=== PATIENT | female | born 1950 | race American Indian/Alaskan Native ===

== ENCOUNTER 2022-09-18 06:59 | Day surgery (SDC) | payer MEDICARE, OTHER ==
[~2022-09-18] VITALS: Ht 154.9 cm; Wt 74.2 kg
[~2022-09-18 06:59] MED LIST: B COMPLETE1 EACH PO; CALCITRIOL0.5 MCG PO; CALCIUM500 MG PO; CEFTIN500 MG PO; CETIRIZINE HCL10 MG PO; CLOTRIMAZOLE TOP; COLACE100 MG PO; FISH OIL 1,2001 EAC8 PO; FISH OIL500 MG PO; HYDROCHLOROTH12.5 MG PO; HYDROCODON-ACE1 EA11 PO; LEVOTHYROXINE112 MC1 PO; LEVOTHYROXINE25 MCG PO; NAPROXEN250 MG PO; NORCO 5-325 TA1 EACH PO; POTASSIUM CHLO10 MEQ PO; PRILOSEC20 MG PO; TERBINAFINE HC250 MG PO; UREA198 GM TOP; VITAMIN C500 M1 PO; VITAMIN D5000 UNIT PO; ZOFRAN4 MG PO
--- NOTE | 2022-09-18 09:01 | NUR ---
09/18/22 0901 Rochelle Reyes [id number] PATIENT ARRIVES TO PACU SLEEPING. AWAKENS WITH REPEATED VERBAL STIMULI, THEN BACK TO SLEEP. RESP EVEN AND UNLABORED, NC AT 2 LITERS, DOES NOT REMINDERS TO TAKE DEEP BREATHS. PASSING GAS.
--- NOTE | 2022-09-18 09:50 | OR ---
[facility] [address], [place] [address] Signed DATE OF OPERATION: 09/18/2022 SURGEON: Adriel Baker MD PREOPERATIVE DIAGNOSES: 1. Cecal diverticulum. 2. Personal history of colonic polyps, age 56. 3. Internal and external hemorrhoids. POSTOPERATIVE DIAGNOSES: 1. Minimal sigmoid diverticulosis (x2). 2. Cecal diverticulum x1. 3. Minimal internal and external hemorrhoids. PROCEDURE: Colonoscopy without biopsy. ESTIMATED BLOOD LOSS: None. INDICATIONS: Jeremiah is a 72-year-old female, who came for followup colonoscopy. She 1st came in 2006 at the age of 56. She had a cecal diverticulum and several small polyps in her rectum. We had her come back in three years in 2009 at the age of 59 and again she just had some internal and external hemorrhoids, but no polyps. She came back to us then in 2014 at the age of 64 and had just a hyperplastic polyp in the rectum. Again, just small internal and external hemorrhoids. She always does well with Versed and fentanyl. She has no family history of colon cancer or polyps. However, her developed colon cancer at the age of 59 and he two or three years later from his colon cancer. She is now a and retired. She told me she has no lower GI complaints. In the office, I had given her a pamphlet on colonoscopy. She recalls the test well. There is risk including, but not limited to gas bloating, crampy abdominal pain, bleeding, perforation requiring surgery, and missed diagnosis. We also reviewed the need for the IV conscious sedation. She had expressed understanding and wished to proceed. PROCEDURE NOTE: Jeremiah was taken into our endoscopy suite and placed in the left lateral decubitus position. She was given 5 mg of Versed and 150 mcg of fentanyl. A digital rectal exam was performed. She has very small external hemorrhoids. She had good sphincter tone. There were no masses. The adult colonoscope was introduced and advanced all the way Electronically Signed By: ADRIEL BAKER MD 09/18/22 0950 PATIENT NAME: JEREMIAH SOARES OPERATIVE REPORT DATE OF : 48 REPORT #: [id number] PHYSICIAN: ADRIEL BAKER MD PCP: SAM PORTILLO MD REPORT IS CONFIDENTIAL AND NOT TO BE RELEASED WITHOUT AUTHORIZATION [facility] [address], [place] [address] Signed around into the cecum under direct visualization of the camera. It took some abdominal compression and a little extra sedation in order to advance the scope particularly through the left colon. Her prep was quite excellent. We could easily see the appendiceal orifice and the ileocecal valve. There was one small diverticulum in the cecum. The scope was then slowly withdrawn. We had taken several pictures throughout for photodocumentation. We only saw a couple of diverticula in the sigmoid colon. They are both moderate in size. The rectum was unremarkable. Upon retroflexion of the scope, we could see some minimal internal hemorrhoid columns. After this, the gas was suctioned out and the colonoscope removed. Jeremiah tolerated the procedure quite well. RECOMMENDATIONS: I will see Jeremiah back in 5 years for repeat colonoscopy. Adriel Baker MD ALB/MODL /[id number] cc: [facility] Adriel Baker MD Copies: ADRIEL BAKER MD ~ Electronically Signed By: ADRIEL BAKER MD 09/18/22 0950 PATIENT NAME: JEREMIAH SOARES OPERATIVE REPORT DATE OF : 48 REPORT #: [id number] PHYSICIAN: ADRIEL BAKER MD PCP: SAM PORTILLO MD REPORT IS CONFIDENTIAL AND NOT TO BE RELEASED WITHOUT AUTHORIZATION
--- NOTE | 2022-09-18 09:58 | NUR ---
PT IS BACK TO DS FROM PACU, TO GIVE HER MORE TIME TO WAKE UP. SHE HAS NO PAIN, TOLERATING JUICE, CALL LIGHT WITHIN REACH. NO ADDITIONAL NEEDS OR CONCERNS.
--- NOTE | 2022-09-18 11:18 | NUR ---
LE 1055: PT IS MORE ALERT AND INDICATES THAT HE WOULD LIKE TO GET DRESSED AND GO HOME. SHE IS EDUCATED ON HOW TO BEST GET DRESSED. LE 1102: SHE IS GIVEN VERBAL AND WRITTEN DC INSTRUCTIONS. SHE HAS NO QUESTIONS AT THIS TIME. SHE IS TAKEN TO PERSONAL VEHICLE VIA , WHERE SHE TRANSFERS HERSELF WITHOUT ISSUES.
== END 2022-09-18 11:05 | disposition home or self-care (01) ==
LOC: OPS 06:59 → DS 06:59 → OPS 08:15 → DS 09:00 → OPS 11:05
PROVIDERS: ATTEND Colon & Rectal Surgery
PROC: 0DJD8ZZ Inspection of Lower Intestinal Tract, Via Natural or Artificial Opening Endoscopic (ICD-10-PCS; principal; 2022-09-18 08:15)
DX: Z12.11 Encounter for screening for malignant neoplasm of colon (principal); E03.9 Hypothyroidism, unspecified; I10 Essential (primary) hypertension; K57.30 Diverticulosis of large intestine without perforation or abscess without bleeding; K64.0 First degree hemorrhoids; K64.4 Residual hemorrhoidal skin tags; M19.90 Unspecified osteoarthritis, unspecified site; Z86.010 Personal history of colon polyps; Z80.0 Family history of malignant neoplasm of digestive organs; Z88.5 Allergy status to narcotic agent; Z88.8 Allergy status to other drugs, medicaments and biological substances
CPT/HCPCS: 99153; G0500; J2250; J3010; J7121